=== PATIENT | female | born 1970 | race American Indian/Alaskan Native ===

== ENCOUNTER 2017-08-20 15:50 | Outpatient (CLI) | payer MEDICARE, OTHER ==
--- NOTE | 2017-08-20 17:12 | Cat Scan Report ---
FINAL REPORT PROCEDURE: CT THORACIC SPINE WO CON TECHNIQUE: Computerized axial tomography of the thoracic spine was performed from C7 - L1 without contrast material. DLP 958.68 mGy-cm. HISTORY: Pain thoracic spine. COMPARISON: No prior studies are available for comparison. FINDINGS: Normal alignment. Tiny multilevel osteophytes. Intrathecal leads, tip at the T10 level. Loop in the mid visualized lead in the subcutaneous tissues. At the T6-7 level there is minimal posterior spurring with slight thecal sac effacement. 2.8 mm right apical ill-defined ground-glass nodule (image 44 series 3). 2 mm left upper lobe nodule (image 55 series 3). Triangular anterior mediastinal soft tissue attenuation. IMPRESSION: Mild degenerative changes of the thoracic spine as described above. Intrathecal leads. Triangular anterior mediastinal soft tissue attenuation. Consider reactive thymic tissue, cannot exclude anterior mediastinal process such as thymoma. There are also indeterminate pulmonary nodules. Consider dedicated chest CT if there is continued clinical concern.
--- NOTE | 2017-08-20 20:21 | Cat Scan Report ---
FINAL REPORT PROCEDURE: CT CERVICAL SPINE WO CON TECHNIQUE: Computerized tomography of the cervical spine was performed from the skull base to T1 without contrast material. HISTORY: CERVICALGIA COMPARISON: No prior studies are available for comparison. FINDINGS: Vertebral alignment and height are within normal limits. Visualized lung apices are clear. Soft tissues of the neck are unremarkable. C1-2: No significant abnormality. C2-3: No significant abnormality. C3-4: No significant abnormality. C4-5: No significant abnormality. C5-6: No significant abnormality. C6-7: No significant abnormality. C7-T1: No significant abnormality. Other: No additional findings. IMPRESSION: No acute fracture. Unremarkable cervical spine..
--- NOTE | 2017-08-20 21:46 | Cat Scan Report ---
FINAL REPORT EXAM: CT LUMBAR SPINE WO CON HISTORY: LUMBAR RADICULOPATHY TECHNIQUE: Axial noncontrast CT images of the lumbosacral spine were performed. Multiplanar reformats are performed on the acquisition scanner. Total exam DLP 1031.79 mGy-cm Comparison: None FINDINGS: There is normal lumbar lordosis. There is minimal retrolisthesis L5 on S1. There are no compression fractures. Pedicles and facets are intact. There is a lumbar epidural pain catheter entering the epidural space posteriorly at T12/L1. There is no significant degenerative disease. Axial images were obtained from bottom of T12 to the sacrum. The epidural catheter is present. There is no significant canal stenosis or foraminal stenosis at any level. There is broad-based bulge at L5/S1. Limited images of the retroperitoneum demonstrate multiple small retroperitoneal lymph nodes. Normally anteverted uterus incompletely imaged. IMPRESSION: Lumbar epidural pain catheter present entering at the T12/L1 posterior space. L5/S1 minimal retrolisthesis with broad-based bulge. No significant degenerative disease at any level. No canal stenosis or foraminal stenosis identified. No compression fracture.
== END 2017-08-20 15:51 | disposition home or self-care (01) ==
LOC: CT 15:50
PROVIDERS: ATTEND Specialist
DX: M47.894 Other spondylosis, thoracic region (principal); M54.16 Radiculopathy, lumbar region; R91.8 Other nonspecific abnormal finding of lung field; M54.2 Cervicalgia
CPT/HCPCS: 72125; 72128; 72131